=== PATIENT | male | born 1995 | race African-American/Black ===

== ENCOUNTER 2020-12-06 05:42 | Emergency (ER) | payer BC, SELFPAY ==
[2020-12-06 05:47] VITALS: BP 134/61; PULSE 63; RESP 18; TEMP 36.5; O2SAT 100
--- NOTE | 2020-12-06 05:53 | PC.NURSE ---
Pt ambulatory c steady, even, unassisted gait to ED. c/o cough (nonproductive), sore throat, fatigue x 3 days. reports sore throat pain 8/10 and unable to go to work today. pt reports there is some mold on his windows that his landlord is aware of, and he is concerned this is the cause of his symptoms. pt resps even, nonlabored. speech clear. no difficulty managing oral secretions. pt in gown and vitals obtained.
[2020-12-06] MEDS: MECLIZINE HCL 25 MG TABLET PO (07:44)
--- NOTE | 2020-12-06 08:18 | PC.NURSE ---
Pt resting on stretcher. Awaiting further orders or disposition.
--- NOTE | 2020-12-06 08:18 | ED.GENADULT ---
HPI - General Adult General Chief complaint: Upper Respiratory Infection Stated complaint: Lightheaded, nausea, sore throat Time Seen by Provider: 12/06/20 06:59 History of Present Illness HPI narrative: Patient is a 24-year-old male who presents ER with lightheadedness and sore throat. Over the last 3 days patient began having sore throat with cough. He is also started to have some motion sickness that is associated with nausea. No fevers or chills or sweats. No known sick contacts. No loss of smell or taste. No aggravating or alleviating factors. Related Data Allergies Allergy/AdvReac Type Severity Reaction Status Date / Time amoxicillin Allergy Intermediate Unknown Verified 12/06/20 05:51 Review of Systems Review of Systems: All systems reviewed & are unremarkable except as noted in HPI and below Constitutional: Constitutional: Denies chills, Denies fever(s) and Denies weakness ENT: Reports dizziness, Denies nasal congestion and Reports sore throat Cardiovascular: Cardiovascular: Denies chest pain and Denies radiating jaw, neck or arm pain Respiratory: Respiratory: Reports cough, Denies dyspnea and Denies wheezing Gastrointestinal: Gastrointestinal: Denies abdominal pain, Reports nausea and Denies vomiting PMFSH Past Medical History Medical History (Updated 12/06/20 @ 08:23 by Brenden Benavides MD) Healthy adult male Surgical History Surgical History (Updated 12/06/20 @ 08:20 by Brenden Benavides MD) No history of previous surgery Exam Narrative: Exam Narrative: GENERAL: Well-appearing, well-nourished, and in no acute distress. HEAD: Normocephalic, atraumatic. EYES: PERRL and EOMI. ENT: Mucous membranes moist. Normal-appearing posterior oropharynx without tonsillar hypertrophy or exudate. No pharyngeal erythema. Uvula midline and nonedematous. TMs normal bilaterally. CHEST: Clear to auscultation. No respiratory distress. HEART: Regular rate and rhythm. Normal peripheral pulses. EXTREMITIES: Normal range of motion. No edema. NEURO: Alert and oriented x3. PSYCH: Normal mood and affect. Course Course Emergency Course: Patient resting comfortably. Given meclizine. Feels improved. Discharge home with Flonase and meclizine. Vital Signs Vital signs: Vital Signs Temperature 97.7 F 12/06/20 05:47 Pulse Rate 63 12/06/20 05:47 Respiratory Rate 18 12/06/20 05:47 Blood Pressure 134/61 12/06/20 05:47 Pulse Oximetry 100 12/06/20 05:47 Temperature 97.7 F 12/06/20 05:47 Pulse Rate 63 12/06/20 05:47 Respiratory Rate 18 12/06/20 05:47 Blood Pressure 134/61 12/06/20 05:47 Pulse Oximetry 100 12/06/20 05:47 Medical Decision Making Vital Signs Vital Signs: Vital Signs Temperature 97.7 F 12/06/20 05:47 Pulse Rate 63 12/06/20 05:47 Respiratory Rate 18 12/06/20 05:47 Blood Pressure 134/61 12/06/20 05:47 Pulse Oximetry 100 12/06/20 05:47 Temperature 97.7 F 12/06/20 05:47 Pulse Rate 63 12/06/20 05:47 Respiratory Rate 18 12/06/20 05:47 Blood Pressure 134/61 12/06/20 05:47 Pulse Oximetry 100 12/06/20 05:47 Discharge Plan Discharge Clinical Impression: Upper respiratory infection, Dizziness Patient Disposition: Home, Self-Care Condition: Stable Instructions: Vertigo (ED), Upper Respiratory Infection (ED) Additional Instructions: Return to the ER if you cannot keep down food or water, you have chest pain or shortness of breath, you have focal weakness in arm or leg, you have additional concerns. Prescriptions: New fluticasone propionate [Flonase Allergy Relief] 50 mcg/actuation spray,suspension 1 spray intranasal DAILY Qty: 16 RF: 0 meclizine 25 mg tablet 25 mg PO TID PRN (Reason: dizziness) Qty: 14 RF: 0 Follow-up/Referrals: Geo Campbell MD [Physician] - 1 Week PHYSICIAN,E LEARNING COORDINATOR [Primary Care Provider] - Stand Alone Forms: Work/School Release IP
[2020-12-06 08:34] VITALS: BP 112/73; PULSE 80; RESP 14; O2SAT 99
== END 2020-12-06 08:37 | disposition home or self-care (01) ==
PROVIDERS: Emergency Provider Emergency Medicine
DX: J06.9 Acute upper respiratory infection, unspecified (principal); R42 Dizziness and giddiness
CPT/HCPCS: 99283; A9270

== ENCOUNTER 2021-01-14 08:57 | Emergency (ER) | payer BC, SELFPAY ==
[2021-01-14 09:07] VITALS: BP 139/61; PULSE 77; RESP 12; TEMP 36.7; O2SAT 94
--- NOTE | 2021-01-14 09:44 | ED.SKABFB ---
HPI - Skin/Abscess/Foreign Bdy General Chief complaint: Skin/Abscess/Foreign Body Stated complaint: rash Time Seen by Provider: 01/14/21 08:59 History of Present Illness HPI narrative: Patient is a 25-year-old male who presents ER with a rash. 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 He reports it is itchy and it improves with using hydrocortisone. She has noticed another small spot on the first webspace of his left hand and that he is also had on his neck and back and today on his buttock. No fevers or chills or sweats. No new laundry detergents or body washes/perfumes. No one else in his home has similar symptoms. No pustules or vesicles. Does not believe he has been exposed to any other environmental allergens. Related Data Allergies Allergy/AdvReac Type Severity Reaction Status Date / Time amoxicillin Allergy Intermediate Unknown Verified 12/06/20 05:51 Review of Systems Constitutional: Constitutional: Denies chills, Denies fever(s) and Denies weakness ENT: Denies nasal congestion and Denies sore throat Respiratory: Respiratory: Denies cough, Denies dyspnea and Denies wheezing Integumentary/Breasts: Skin/Breast: Reports pruritus, Denies erythema, Reports rash and Denies skin ulcer PMFSH Past Medical History Medical History (Updated 01/14/21 @ 09:49 by Brenden Benavides MD) Healthy adult male Surgical History Surgical History (Updated 12/06/20 @ 08:20 by Brenden Benavides MD) No history of previous surgery Exam Narrative: GENERAL: Well-appearing, well-nourished, and in no acute distress. HEAD: Normocephalic, atraumatic. CHEST: Clear to auscultation. No respiratory distress. HEART: Regular rate and rhythm. Normal peripheral pulses. EXTREMITIES: Normal range of motion. No edema. SKIN: Warm, dry. Fine sandpaper like rash that is raised that appears consistent with contact dermatitis most notable on the right forearm. Small 1 cm diameter area to left first webspace. NEURO: Alert and oriented x3. PSYCH: Normal mood and affect. Course Course Emergency Course: Recommend oral Zyrtec or Claritin as well as continued use of hydrocortisone. Recommend wearing long sleeves while at work. Discussed he could also attempt changing his laundry detergent something perfume and dye free. Vital Signs Vital signs: Vital Signs Temperature 98.1 F 01/14/21 09:07 Pulse Rate 77 01/14/21 09:07 Respiratory Rate 12 01/14/21 09:07 Blood Pressure 139/61 01/14/21 09:07 Pulse Oximetry 94 01/14/21 09:07 Temperature 98.1 F 01/14/21 09:07 Pulse Rate 77 01/14/21 09:07 Respiratory Rate 12 01/14/21 09:07 Blood Pressure 139/61 01/14/21 09:07 Pulse Oximetry 94 01/14/21 09:07 Discharge Plan Discharge Clinical Impression: Contact dermatitis Patient Disposition: Home, Self-Care Condition: Stable Instructions: Contact Dermatitis (ED) Additional Instructions: Return to the ER if your rash is red and hot, you have fever over 100.4 ?F, you have difficulty breathing. Continue to use hydrocortisone. You may also use oral Claritin or Zyrtec once a day to help with your symptoms. Is recommended you wear long sleeves at work to help prevent exposure to something your skin may be irritated by. You may also want to try changing your laundry detergent to something that is free of dye/perfumes. The same will go for any sort of body wash. Prescriptions: No Action fluticasone propionate [Flonase Allergy Relief] 50 mcg/actuation spray,suspension 1 spray intranasal DAILY Qty: 16 RF: 0 meclizine 25 mg tablet 25 mg PO TID PRN (Reason: dizziness) Qty: 14 RF: 0 Follow-up/Referrals: PHYSICIAN NOT ON STAFF,NONSTAFF [Primary Care Provider] - 1 Week
== END 2021-01-14 10:25 | disposition home or self-care (01) ==
PROVIDERS: Emergency Provider Emergency Medicine
DX: L25.9 Unspecified contact dermatitis, unspecified cause (principal)
CPT/HCPCS: 99281

== ENCOUNTER 2021-12-28 10:40 | Emergency (ER) | payer OTHER, BC, SELFPAY ==
[2021-12-28 10:47] VITALS: BP 152/80; PULSE 69; RESP 12; TEMP 36.2; O2SAT 97
--- NOTE | 2021-12-28 12:03 | PC.NURSE ---
attempted to locate patient to be taken to room for eval and patient not found.
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
--- NOTE | 2021-12-28 12:48 | PC.NURSE ---
[employer] WILL CONTACT A WORKER THAT IS ALREADY ON SITE.
[2021-12-28 13:31] LABS: Basophils Percent Auto 0.6 % (0.2-1.2); Eosinophils Absolute Auto 0.1 K/mm3 (0-0.3); Eosinophils Percent Auto 2.5 % (0-4.4); Hemoglobin 15.1 g/dL (14.0-18.0); Immature Granulocyte Absolute 0.01 K/mm3 (0.00-0.031); Immature Granulocyte Percent A 0.3 % (0-0.5); Lymphocytes Percent Auto 28.2 % (18.3-44.2); Mean Corpuscular HGB Conc 33.6 g/dl (32-36); Mean Corpuscular Hemoglobin 30.9 pg (26-34); Mean Corpuscular Volume 92.2 fl (80-100); Monocytes Absolute Auto 0.4 K/mm3 (0.1-0.6); Monocytes Percent Auto 12.1 % (2.6-8.5); Neutrophils Percent Auto 56.3 % (45.5-73.1); Platelet Count Result 220 k/mm3 (150-375); Red Blood Count 4.88 M/mm3 (4.6-6.20); Red Cell Distribution Width 12.1 % (11.5-14.5); White Blood Count 3.5 K/mm3 (4.5-10.0)
[2021-12-28 13:38] LABS: Appearance Urine Clear (Clear); Bilirubin Urine Negative (Negative); Blood Urine Negative (Negative); Color Urine Yellow (Yellow); Glucose Urine UA Negative (Negative); Ketones Urine Negative (Negative); Leukocyte Esterase Ur Negative LEU/UL (Negative); Nitrate Urine Negative (Negative); Protein Urine Negative (Negative); Specific Grav Ur >= 1.030 (1.001-1.035)
[2021-12-28 13:40] LABS: Acetaminophen < 10 ug/mL (10-30); Alanine Aminotransferase 30 U/L (6-50); Albumin Level 4.6 g/dL (3.5-5.1); Alkaline Phosphatase 70 U/L (38-126); Anion Gap 7 mmol/L (8-16); Aspartate Amino Transferase 36 U/L (17-59); Bilirubin,Total 1.2 mg/dL (0.2-1.3); Blood Urea Nitrogen 16 mg/dL (9-20); Calcium 9.8 mg/dL (8.4-10.2); Carbon Dioxide 28 mmol/L (22-30); Chloride 105 mmol/L (98-107); Estimated CRCL calculation 69 ml/min; Estimated Glomerular Filt Rate > 60; Ethanol < 10 mg/dL (<10); Glucose 120 mg/dL (65-110); Potassium 3.6 mmol/L (3.4-5.0); Salicylate < 1.0 mg/dL (2-20); Sodium 140 mmol/L (137-145)
[2021-12-28 13:52] LABS: Amphetamine Screen Urine Negative (Negative); Bacteria Urine Trace /hpf; Barbiturate Screen Urine Negative (Negative); Benzodiazepines Screen Urine Negative (Negative); Cannabinoid Screen Urine Negative (Negative); Cocaine Screen Urine Negative (Negative); Methadone Screen Urine Negative (Negative); Mucus Urine Few /lpf; Opiate Screen Urine Negative (Negative); Phencyclidine Screen Urine Negative (Negative); RBC Urine 0-2 /hpf (0-2); Squamous Epithelial Cell Urine Rare /hpf (Few); WBC Urine 0-3 /hpf
[2021-12-28 13:55] LABS: Add Urine Microscopic? NO
[2021-12-28 14:11] LABS: Thyroid Stimulating Hormone 0.575 uIU/mL (0.465-4.680)
[2021-12-28 14:18] LABS: SARS-CoV-2 RNA PCR Positive
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
--- NOTE | 2021-12-28 15:15 | PC.NURSE ---
[employer] truck sales representative reported that patient does not meet criteria for admission for psychiatric care. they provided resources for patient if he should need to contact them.
[2021-12-28 15:41] VITALS: BP 132/64; PULSE 68; RESP 16; O2SAT 99
== END 2021-12-28 15:42 | disposition home or self-care (01) ==
PROVIDERS: Emergency Provider Emergency Medicine
DX: S29.9XXA Unspecified injury of thorax, initial encounter (principal); F32.A Depression, unspecified; U07.1 COVID-19; Y00.XXXA Assault by blunt object, initial encounter
CPT/HCPCS: 36415; 80053; 80307; 81003; 84443; 85025; 99283; C9803; U0003; U0005

== ENCOUNTER 2022-12-08 21:25 | Emergency (ER) | payer BC, OTHER, SELFPAY ==
[2022-12-08 21:58] VITALS: BP 120/80; PULSE 60; RESP 14; TEMP 36.4; O2SAT 99
--- NOTE | 2022-12-08 23:27 | ED.BACK ---
HPI - Back Pain/Injury General Chief Complaint: Back Pain/Injury Stated Complaint: back pain Time Seen by Provider: 12/08/22 22:35 Source: patient Mode of arrival: ambulatory Limitations: no limitations History of Present Illness HPI Narrative: This is a 26-year-old male that presents to the emergency department after a lifting injury with mid back pain. Reports he lifted his significant other and immediately felt some pain in his mid back. Reports pain and spasming of his left mid back since. He has not taken anything for pain. Denies weakness or numbness. Related Data Allergies Allergy/AdvReac Type Severity Reaction Status Date / Time amoxicillin Allergy Intermediate Unknown Verified 12/08/22 23:02 Review of Systems Review of Systems: CONSTITUTIONAL: Denies fever MUSCULOSKELETAL: Reports back pain, joint pain, and myalgia. NEUROLOGIC: Denies numbness, or weakness. All systems reviewed & are unremarkable except as noted in HPI and below PMFSH Past Medical History Medical History Healthy adult male Surgical History Surgical History No history of previous surgery Social History Social History Substance use type: does not use Exam Narrative: GENERAL: Well-appearing, well-nourished, and in no acute distress. HEAD: Normocephalic, atraumatic. EYES: EOMI. CHEST: Clear to auscultation. No respiratory distress. No wheezes rales or rhonchi HEART: Regular rate and rhythm. No murmur heard. Normal peripheral pulses. BACK: Tender to palpation of the left lower thoracic/lumbar paraspinal musculature EXTREMITIES: Normal range of motion. No edema. Strength equal in bilateral lower extremities (5/5) SKIN: Warm, dry, no rash. NEURO: No focal deficits. Alert and oriented x3. Normal gait PSYCH: Normal mood and affect Course Vital Signs Vital signs: Vital Signs Temperature 97.6 F 12/08/22 21:58 Pulse Rate 60 12/08/22 21:58 Respiratory Rate 14 12/08/22 21:58 Blood Pressure 120/80 12/08/22 21:58 Pulse Oximetry 99 12/08/22 21:58 Temperature 97.6 F 12/08/22 21:58 Pulse Rate 60 12/08/22 21:58 Respiratory Rate 14 12/08/22 21:58 Blood Pressure 120/80 12/08/22 21:58 Pulse Oximetry 99 12/08/22 21:58 MDM - Back Pain/Injury MDM Narrative Medical decision making narrative: Patient presents emergency department for left-sided mid to lower back pain present after a lifting injury today. He is neurologically intact. His vitals are normal. Instructed on care of muscle strain. Instructed to rest, ice and take [id number] pain medication as needed. Will be prescribed muscle relaxer as needed for pain. He is to follow-up with primary care provider. He was given warnings to return to the ER Differential Diagnosis Differential diagnosis: Likely lumbar radiculopathy, strain of lumbar region and thoracic back pain Critical Care Time Critical Care Time Critical Care Time: No Discharge Plan Discharge Clinical Impression: Strain of lumbar region Qualifiers: Encounter type: initial encounter Qualified Code(s): S39.012A - Strain of muscle, fascia and tendon of lower back, initial encounter Patient Disposition: Home, Self-Care Condition: Stable Instructions: Back Pain (ED) Additional Instructions: Return to the ER if you experience weakness, numbness, bowel/bladder incontinence, or any other symptoms that are concerning to you Rest, use ice/heat, take anti-inflammatories (Aleve, Ibuprofen, Naproxen, etc) or Tylenol as needed for pain as well as muscle relaxer (Flexeril) as needed for pain. Muscle relaxers can make you drowsy, do not drive if you take this Follow up with your primary care doctor Prescriptions: New cyclobenzaprine 10 mg tablet 10 mg PO TID PRN (Reason: muscle spasm) Qty: 14 0RF Follow-u
[2022-12-09] MEDS: ACETAMINOPHEN 500 MG TABLET 1000 MG PO (00:10)
[2022-12-09] MEDS: KETOROLAC 30 MG/ML VIAL (*BKC) IM (00:11)
== END 2022-12-09 00:16 | disposition home or self-care (01) ==
PROVIDERS: Emergency Provider Physician Assistant
DX: S39.012A Strain of muscle, fascia and tendon of lower back, initial encounter (principal); W01.0XXA Fall on same level from slipping, tripping and stumbling without subsequent striking against object, initial encounter
CPT/HCPCS: 96372; 99283; A9270; J1885